=== PATIENT | male | born 1960 | race Caucasian/White ===

== ENCOUNTER → 2018-03-17 13:07 | Outpatient (CLI) | payer BC, SELFPAY ==
--- NOTE | 2018-03-17 13:11 | CA_ITS ---
PROCEDURE: 2-D M-mode and color Doppler study INDICATIONS FOR THE TEST: Chest pain COPD Heart Murmur Tobacco Smoking Palpitations Fatigue Syncope Edema Hypertension+Diabetes Mellitus Rheumatic Fever SOB [place]+Obesity Hyperlipidemia+ Family History HD+ Additional History PATIENT INFORMATION HEIGHT: 65 WEIGHT:198 GENDER: Male B/P:177/93 2-D/M-MODE INTERPRETATION: 2-D MEASUREMENTS OBSERVED VALUES IN CMS Right Ventricular Dimension (RVDd) 2.3 Interventricular Septum (Thickness)(IVsd) 1.2 Left Ventricular Internal Dimensions(LVIDd) 2.8 Left Ventricular Posterior Wall (Thickness)(LVPWd) 1.3 Aortic Root 3.8 Aortic Cusp Separation 2.1 Left Atrial Dimensions (LAD) 3.8 2D 1. Left atrium is mildly enlarged, left ventricle is normal size, mild concentric left ventricular hypertrophy, visually estimated ejection fraction of 60-65% with no obvious regional wall motion abnormality, septum has sigmoid configuration. 2. The right atrium and right ventricle are normal size and contractility. 3. The aortic valve is minimally thickened and fibrosed. 4. The mitral and tricuspid valve are grossly normal. 5. The pulmonic valve is poorly visualized. 6. No significant pericardial effusion noted. DOPPLER INTERROGATION: Doppler interrogation of the aortic, mitral and tricuspid valvular presence of mild mitral and tricuspid regurgitation, tricuspid and enteric velocity insufficient for calculation of the right ventricular systolic pressure, grade 1 diastolic dysfunction seen without tissue Doppler evidence of raised left atrial pressure. CONCLUSION: 1. Mildly left atrium, normal left ventricular size, mild concentric left ventricular hypertrophy, visually estimated ejection fraction of 60-65% with no obvious regional wall motion abnormality, septum has sigmoid configuration, grade 1 diastolic dysfunction seen without tissue Doppler evidence of raised left atrial pressure. 2. Mild mitral and tricuspid regurgitation 3. No significant pericardial effusion noted.
== END ==
PROVIDERS: Family Provider Nurse Practitioner; PCP Nurse Practitioner; Visit Provider Internal Medicine
DX: I10 Essential (primary) hypertension (principal); E78.2 Mixed hyperlipidemia; I51.9 Heart disease, unspecified
CPT/HCPCS: 93306

== ENCOUNTER → 2018-04-16 16:19 | Outpatient (CLI) | payer BC, SELFPAY ==
[2018-04-16 17:49] LABS: Anion Gap 13.9 mEq/L (5-15); Blood Urea Nitrogen 15 mg/dL (7-18); Calcium 9.2 mg/dL (8.5-10.1); Carbon Dioxide 29 mmol/L (21.0-32.0); Chloride 101 mmol/L (98-107); Creatinine,Serum 1.03 mg/dL (0.70-1.30); Estimated Glomerular Filt Rate 75 ml/min (>60); GFR (African American) 90 ML/MIN (>60); Glucose 100 mg/dL (74-106); Potassium 3.9 mmoL/L (3.5-5.1); Sodium 140 mmol/L (136-145)
== END ==
PROVIDERS: Physician Assistant; PCP Obstetrics & Gynecology; Visit Provider Internal Medicine
DX: I50.30 Unspecified diastolic (congestive) heart failure (principal); R53.83 Other fatigue; R06.83 Snoring; E78.2 Mixed hyperlipidemia; I10 Essential (primary) hypertension
CPT/HCPCS: 36415; 80048

== ENCOUNTER → 2018-04-23 15:47 | Outpatient (CLI) | payer BC, SELFPAY | PROVIDERS: PCP Nurse Practitioner; Visit Provider Physician Assistant | DX: G47.9 Sleep disorder, unspecified (principal); R06.83 Snoring; R40.0 Somnolence; R53.83 Other fatigue | CPT/HCPCS: 95806 ==

== ENCOUNTER → 2020-07-20 12:01 | Outpatient (CLI) | payer BC, SELFPAY | PROVIDERS: PCP Family Medicine; Visit Provider Family Medicine | DX: Z20.828 Contact with and (suspected) exposure to other viral communicable diseases (principal); U07.1 COVID-19 | CPT/HCPCS: U0003 ==

== ENCOUNTER → 2021-07-05 15:19 | Outpatient (CLI) | payer BC, SELFPAY ==
--- NOTE | 2021-07-05 15:26 | XR_ITS ---
PROCEDURE: XR FOOT LT MIN 3V CLINICAL INDICATION: LT FOOT PAIN, HX OF GOUT COMPARISON: No exams were available for comparison FINDINGS: No fracture or dislocation. No lytic or blastic change. There is normal mineralization. There is mild sclerosis and narrowing of the MP joint great toe. The plantar arch is normal. There is a tiny calcaneal enthesophyte at the insertion of the plantar tendon. Changes evident. Other findings:None. IMPRESSION: Mild osteoarthritic change MP joint great toe Dictated by: Dr. Maximino Adorno MD 07/05/2021 16:11 Dr. Maximino Adorno MD in [place] 07/05/2021 16:11
== END ==
PROVIDERS: PCP Nurse Practitioner Family; Visit Provider Nurse Practitioner Family
DX: M79.672 Pain in left foot (principal); Z87.39 Personal history of other diseases of the musculoskeletal system and connective tissue
CPT/HCPCS: 73630

== ENCOUNTER → 2021-09-10 08:52 | Outpatient (CLI) | payer BC, SELFPAY | PROVIDERS: Visit Provider Nurse Practitioner | DX: Z20.822 Contact with and (suspected) exposure to COVID-19 (principal) | CPT/HCPCS: C9803; U0003; U0005 ==

== ENCOUNTER 2021-09-12 09:12 | Day surgery (SDC) | payer BC, SELFPAY ==
--- NOTE | 2021-09-02 13:45 | SUR.PREOP ---
09/02/21 @ 1345 - Rosalee called in to [facility] spoke with Juan Pharmicist for Dr Russell
[2021-09-06 09:49] VITALS: BMI 30.7
[2021-09-12 10:03] VITALS: BP 148/86; PULSE 83; RESP 16; TEMP 36.8; O2SAT 99
--- NOTE | 2021-09-12 10:50 | HMH.SCOPE ---
- Procedure: Date: 09/12/21 Patient Date of :: 1960 Procedure Performed:: Colonoscopy & polypectomy with snare Indications:: Screening colonoscopy Performing Provider:: Nohemi Carrera MD Referring Provider:: Jostin Schmidt MD Sedation:: Propofol Procedure:: After placing the patient in the left lateral decubitus position, the colonoscopy was gently inserted into the rectum and under direct visualization advanced to the cecum which was identified by transillumination in the right lower quadrant, identification of the ileocecal valve, appendiceal orifice, and cecal strap. Color, texture, mucosa, and anatomy of the colon were carefully examined with the scope. Findings:: Anal canal: normal Rectum: normal Sigmoid colon: Scattered diverticuli : Adenomatous Sigmoid polyp, .7cm, snared and removed Descending colon: normal without polyps or inflammatory changes Splenic flexure: normal Transverse colon: normal without polyps or inflammatory changes Hepatic flexure: normal Ascending colon: normal without polyps or inflammatory changes Cecum: normal Terminal ileum: not visualized Impression: Adenomatous sigmoid polyp Scattered sigmoid diverticulosis Specimens:: Sigmoid polyp Recommendations:: Repeat colonoscopy in about 3 years or so, sooner if clinically indicated Complications:: None Estimated blood obtained (mL): 0
[2021-09-12 10:52] VITALS: O2SAT 100
--- NOTE | 2021-09-12 10:55 | HMH.ANESCL ---
[facility] Anesthesia Checklist - Patient Identification Patient Identification: Arm Band - Structural Data Admitted From: Home Planned Operative Procedure/s: colonoscopy Consent for Planned Operative Procedure(s) Verified: Yes Verified Documents: Surgical Consent, History and Physical - NPO Status Verified Time NPO: 00:00 - Additional verifications Anesthesia Reactions: No - Airway Assessment C-Spine Mobility Assessed: Yes (mp2) TMJ Mobility Assessed: Yes Dentition: Good Dentition - Neurological Assessment Level of Consciousness: Awake, Alert - Anesthesia Plan Anesthesia Risk discussed: Yes Anesthesia Plan: Verified ASA Class: II Anesthesia Type: MAC [facility] History I have reviewed the patient's past medical history: Yes Medical History: Reports:: Gastroesophageal Reflux Disease(GERD), Hyperlipidemia, Hypertension Denies:: Cancer, Diabetes Mellitus Type 1, Diabetes Mellitus Type 2, Internal Pacemaker, MRSA, Seizures *Have you ever received a pneumonia vaccine?: Yes *Have you received a flu vaccine this season?: Yes Anesthesia experience/problems:: nac Other Surgeries: Yes: No Previous Surgery. No: Pacemaker Amputation: No Fractures: No - *Social History Last grade of school completed: 11th or 12th Smoking Status: Current some day smoker Tobacco Type: cigarettes # Packs/Day (cigarettes): 1 Alcohol Intake: current Alcohol Intake Frequency:: a few times a month Substance Use Type: denies use *Occupational Status:: employed, previously employed Housing: house Household Members: spouse *Travel in the last 8 weeks: None Family Hx:: No significant family history
[2021-09-12 11:12] VITALS: BP 106/78; PULSE 90; RESP 18; TEMP 36.6; O2SAT 91
[2021-09-12 11:22] VITALS: BP 112/80; PULSE 93; RESP 18; O2SAT 97
[2021-09-12 11:35] VITALS: BP 131/86; PULSE 80; RESP 18; O2SAT 96
[2021-09-12 11:45] VITALS: BP 127/87; PULSE 74; RESP 18; O2SAT 98
== END 2021-09-12 11:46 | disposition home or self-care (01) ==
LOC: OUTP 09:17
PROVIDERS: PCP Nurse Practitioner Family; Visit Provider Internal Medicine Gastroenterology
PROC: 0DJD8ZZ Inspection of Lower Intestinal Tract, Via Natural or Artificial Opening Endoscopic (ICD-10-PCS; CPT 45378; principal; 2021-09-12 10:30)
DX: Z12.11 Encounter for screening for malignant neoplasm of colon (principal); K63.5 Polyp of colon; K57.32 Diverticulitis of large intestine without perforation or abscess without bleeding; E78.5 Hyperlipidemia, unspecified; I10 Essential (primary) hypertension; Z79.899 Other long term (current) drug therapy
CPT/HCPCS: 45385

== ENCOUNTER 2025-04-06 08:32 | Emergency (ER) | payer BC, SELFPAY ==
[2025-04-06 08:33] VITALS: BP 167/91; PULSE 60; RESP 18; TEMP 36.7; O2SAT 100; BMI 28.3
--- NOTE | 2025-04-06 08:39 | ECG_ITS ---
APPROVED REPORT Exam: Resting ECG HR:58 bpm ECG Measurements Heart Rate 58 AXES [place] 158 P 68 QRSd 91 QRS 26 QT 399 T 54 QTc 396 Conclusion SINUS BRADYCARDIA INCOMPLETE RIGHT BUNDLE BRANCH BLOCK [90+ ms QRS DURATION, TERMINAL R IN V1/V2, 40+ ms S IN I/aVL/V4/V5/V6] MINIMAL ST DEPRESSION [0.025+ mV ST DEPRESSION] BORDERLINE ECG UNCONFIRMED REPORT Electronically signed by : FAVIO WALTER, 04/07/2025 00:37:22
--- NOTE | 2025-04-06 08:42 | PC.NURSE ---
DR MCMAHON AT BEDSIDE
--- NOTE | 2025-04-06 08:46 | XR_ITS ---
FINAL REPORT CLINICAL HISTORY: dyspnea FINDINGS: A portable view of the chest was obtained. Cardiac and mediastinal silhouettes are within normal limits. There is pulmonary vascular congestion. Left basilar opacity could be atelectasis or early pneumonia. There is no pleural effusion or pneumothorax. IMPRESSION: Left basilar atelectasis versus early pneumonia. Reviewed, Interpreted and Dictated by Azeb Romo MD Transcribed by Jennifer Quintero Authenticated and [facility]
--- NOTE | 2025-04-06 08:46 | INFXCTL.NOTE ---
FSBS 134 at this time.
--- NOTE | 2025-04-06 08:49 | HMH.EDGENADL ---
Discharge Plan Disposition Patient Disposition: Home, Self-Care Prescriptions Prescriptions: No Action pravastatin 40 mg tablet 40 mg PO QHS omeprazole 20 mg capsule,delayed release(DR/EC) 20 mg PO DAILY nebivolol [Bystolic] 10 mg tablet 10 mg PO DAILY indomethacin 50 mg capsule 50 mg PO BID PRN (Reason: pain) losartan-hydrochlorothiazide 1 EACH tablet 1 tab PO DAILY Referrals Follow up/Referrals: Jarrod Curran MD [Staff Physician, Cardiology] - See instructions Leigh Granda APRN [Primary Care Provider, Medical] - See instructions Activity Restrictions/Add. Instructions Additional Instructions/Restrictions: As discussed no definitive explanation for your symptoms today however I would like for you to follow-up with cardiology for an echo and Holter/event monitor as discussed. Please return to the emergency department with any significant worsening of your symptoms or other concerns. Additionally please take it easy from an exertional standpoint and minimize your caffeine intake as discussed Clinical Impressions Clinical Impression: Near syncope Print Language Print Language: Albanian Discharge ED Provider: Lacey Sabillon General Adult HPI General Chief complaint: Dizziness Stated complaint: dizziness/light headed Time Seen by Provider: 04/06/25 08:39 History of Present Illness HPI narrative: 64-year-old presenting today with near syncope. States he was in his normal state of health no new or different symptoms preceding his episode today no new or different medications etc. he states he was at work working on a piece of heavy machinery and began suddenly feeling lightheaded. Does not recall the entire events not sure if he lost consciousness and stated that a coworker had to hold him up. Since that time he states his body feels like it weighs a ton. No focal weakness. No chest pain no shortness of breath no fevers or chills or any other symptoms. Denies any cardiovascular history does have a history of gout he states. Related Data Home Medications ?Medication ?Instructions ?Recorded ?Confirmed nebivolol 10 mg tablet (Bystolic) 10 mg PO DAILY High blood pressure 03/15/18 09/12/21 omeprazole 20 mg capsule,delayed 20 mg PO DAILY GERD 03/15/18 09/12/21 release pravastatin 40 mg tablet 40 mg PO QHS Cholesterol 03/15/18 09/12/21 indomethacin 50 mg capsule 50 mg PO BID PRN pain 05/03/18 09/12/21 losartan 50 mg-hydrochlorothiazide 1 tab PO DAILY High blood pressure 09/06/21 09/12/21 12.5 mg tablet Allergies Allergy/AdvReac Type Severity Reaction Status Date / Time No Known Allergies Allergy Verified 09/06/21 09:48 [facility] Disclaimer: The information contained in this section may have been updated after the patient was seen, as this information can be updated by other users. Medical History (Updated 04/06/25 @ 08:52 by Lacey Sabillon MD) Ex-smoker for more than 1 year Snoring Hyperlipidemia Hypertension Social History Smoking Status: Current every day smoker tobacco type: cigarettes packs per day: 1 alcohol intake: current alcohol intake frequency: a few times a month substance use type: denies use current occupational status: employed and previously employed Travel in the last 8 weeks?: None household members: spouse housing: house current occupation: construction caffeine: Yes Other Medical History Have you received the Flu Vaccine for this season: Yes Have you received the Pneumonia Vaccine: Yes ROS Obtained: Yes All systems reviewed & no additional complaints except as documented Physical Exam General General appearance: alert Respiratory Respiratory exam: Present normal lung sounds bilaterally; Absent respiratory distress Cardiovascular Cardiovascular exam: Present regular rate Neurological Exam Neurological exam: Present alert, oriented X3, CN II-XII intact, normal gait and other (Nonfocal neurologic exam); Absent motor sensory deficit Medical Decision Making Medical Records Screening: Per USPSTF and CDC recommendations, given the prevalence of disease in our region, it is our hospital?s policy to screen for HIV and viral Hepatitis for all patients aged 18 and over and those with ongoing risk factors. Abhijit Inquiry Pt receiving controlled substance: No Vital Signs: 04/06/25 08:33 04/06/25 09:30 04/06/25 10:01 Temperature 98.0 F Temperature Source Oral Pulse Rate 56 L 59 L Pulse Rate [Apical] 60 Respiratory Rate 18 18 16 Blood Pressure 160/95 H 167/89 H Blood Pressure [Right Arm] 167/91 H Blood Pressure Mean [Right Arm] 116 Blood Pressure Source [Right Arm] Automatic Cuff Blood Pressure Position [Right Arm] Sitting 02 Sat by Pulse Oximetry 100 99 99 Oxygen Delivery Method Room Air 04/06/25 10:30 Temperature Temperature Source Pulse Rate 54 L Pulse Rate [Apical] Respiratory Rate 15 Blood Pressure 157/83 H Blood Pressure [Right Arm] Blood Pressure Mean [Right Arm] Blood Pressure Source [Right Arm] Blood Pressure Position [Right Arm] 02 Sat by Pulse Oximetry 96 Oxygen Delivery Method Lab Data Lab results reviewed: Yes I reviewed the patient's lab results. Lab Results 04/06/25 08:45: WBC 13.3 H, RBC 4.21 L, Hgb 13.4 L, Hct 42.1, MCV 100.0 H, MCH 31.8 H, MCHC 31.8, RDW 12.6, Plt Count 144, MPV 10.9 H, Neut % (Auto) 35.4 L, Lymph % (Auto) 55.5 H, [place] % (Auto) 7.9, Eos % (Auto) 0.4, Baso % (Auto) 0.3, Neut # (Auto) 4.7, Lymph # (Auto) 7.4 H, [place] # (Auto) 1.1 H, Eos # (Auto) 0.1, Baso # (Auto) 0.0, Total Counted 100, Neutrophils % (Manual) 33 L, Lymphocytes % (Manual) 58 H, Atypical Lymphs % 1.0, Monocytes % (Manual) 6, Eosinophils % (Manual) 1, Basophils % (Manual) 1.0, Platelet Estimate Slight decrease, Sodium 137, Potassium 4.5, Chloride 101, Carbon Dioxide 27, Anion Gap 13.5, BUN 10, Creatinine 0.70, Estimated Creat Clear 82, Estimated GFR 114, Est GFR ( Amer) 138, Glucose 146 H, Calcium 9.2, Phosphorus 3.1, Magnesium 1.8, Total Bilirubin 0.5, AST 35, ALT 25, Alkaline Phosphatase 85, Total Creatine Kinase 107, Troponin I < 0.01, Total Protein 8.9 H, Albumin 4.3, Globulin 4.6 H, Albumin/Globulin Ratio 0.9 L, TSH 0.99, HCV Ab JANE w/Rflx PCR Qn Negative, HIV Ag/Ab Combo Qual Negative 04/06/25 08:45 04/06/25 08:45 Orders (Tests/Meds): ED MEDICATIONS Discontinued Medications Generic Name Dose Route Start Last Admin Trade Name Freq PRN Reason Stop Dose Admin Lactated Ringer's 1,000 mls @ 999 mls/hr 04/06/25 09:00 04/06/25 09:00 Lactated Ringer's 1000 Ml Bag IV 04/06/25 10:00 999 mls/hr .Q1H1M MIRACLE Administration ORDERS Category Date Time Status CXR --portable [XR chest portable] Stat Exams 04/06/25 08:46 Completed BNP [NT Pro Brain Natriuretic Pep.] Stat Lab 04/06/25 08:45 Results CBC w/Auto Diff [Complete Blood Count Auto Diff] Stat Lab 04/06/25 08:45 Completed CK [Creatine Kinase] Stat Lab 04/06/25 08:45 Results CMP [Comprehensive Metabolic Panel] Stat Lab 04/06/25 08:45 Results HIV Combo Stat Lab 04/06/25 08:45 Completed Hepatitis C Ab Qual. W/ RFX Stat Lab 04/06/25 08:45 Completed Magnesium Stat Lab 04/06/25 08:45 Results Phosphorous Stat Lab 04/06/25 08:45 Results TSH [Thyroid Stimulating Hormone] Stat Lab 04/06/25 08:45 Results Trop I [Troponin I] Stat Lab 04/06/25 08:45 Results Troponin I Q3H Lab 04/06/25 12:00 Ordered Troponin I Q3H Lab 04/06/25 15:00 Ordered ECG Data Tracing #1: I reviewed this ECG and interpreted as documented below: Ventricular rate 58 sinus bradycardia no significant block no acute ischemic changes noted there is an incomplete right bundle branch block normal axis Medical Decision Narrative: Well-appearing 64-year-old male with a nonfocal neurologic exam GCS of 15, EKG that is unremarkable presents today with near syncope. Will get metabolic workup and administer IV fluids. It is possible this patient had an arrhythmia cannot rule that out at this moment. Will have him follow-up with cardiology for more of a structural evaluation and Holter/event monitor. Reassessment patient feeling much better serial vital signs are normal labs unremarkable chest x-ray performed I personally interpreted shows no acute cardiopulmonary emergency. I have advised that he follow-up closely with cardiology as discussed and to take it easy from an exertional standpoint until that time. His at the bedside states that has been drinking energy drinks have asked that he hold off on that and minimize his caffeine intake until cleared by cardiology. Patient was stable and discharged in improved condition. Critical Care Critical Care Time Critical Care Time: No
--- NOTE | 2025-04-06 08:50 | PC.NURSE ---
XR AT BEDSIDE
[2025-04-06 08:55] LABS: Hematocrit 42.1 % (42.0-52.0); Hemoglobin 13.4 g/dL (14.1-18.0); Immature Granulocytes % 0.5 %; Mean Corpuscular HGB Conc 31.8 g/dL (31.8-35.4); Mean Corpuscular Hemoglobin 31.8 pg (27.0-31.2); Mean Corpuscular Volume 100.0 fl (80-94); Nucleated Red Blood Cells % 0 %; Platelet Count 144 K/mm3 (142-424); Red Blood Count 4.21 M/mm3 (4.60-6.20); Red Cell Distribution Width-SD 46.7 fL; White Blood Count 13.3 K/mm3 (4.8-10.8)
[2025-04-06] MEDS: LACTATED RINGERS 1000ML 1,000 ML 999 ML IV (09:00)
[2025-04-06 09:06] LABS: Albumin Level 4.3 g/dl (3.5-5.0); Chloride 101 mmol/L (98-107)
[2025-04-06 09:07] LABS: Potassium 4.5 mmoL/L (3.5-5.1); Sodium 137 mmol/L (136-145)
[2025-04-06 09:09] LABS: Alanine Aminotransferase 25 U/L (12-78); Albumin/Globulin Ratio 0.9 (1.1-1.8); Alkaline Phosphatase 85 U/L (38-126); Anion Gap 13.5 mEq/L (5-15); Aspartate Amino Transferase 35 U/L (17-59); Bilirubin,Total 0.5 mg/dl (0.2-1.3); Blood Urea Nitrogen 10 mg/dl (9-20); Carbon Dioxide 27 mmol/L (22.0-30.0); Creatinine Clearance Estimated 82 mL/min (50-200); Creatinine,Serum 0.70 mg/dl (0.66-1.25); Estimated Glomerular Filt Rate 114 ml/min (>60); GFR (African American) 138 ML/MIN (>60); Globulin 4.6 g/dL (1.3-3.2); Phosphorous 3.1 mg/dl (2.5-4.5); Total Protein,Serum 8.9 g/dl (6.3-8.2)
[2025-04-06 09:10] LABS: Calcium 9.2 mg/dl (8.4-10.2); Creatine Kinase 107 U/L (55-170); Glucose 146 mg/dl (74-100); Magnesium 1.8 mg/dl (1.6-2.3)
[2025-04-06 09:25] LABS: Troponin I < 0.01 ng/ml (0.00-0.034)
[2025-04-06 09:30] VITALS: BP 160/95; PULSE 56; RESP 18; O2SAT 99
[2025-04-06 09:40] LABS: Thyroid Stimulating Hormone 0.99 uIU/mL (0.465-4.68)
[2025-04-06 10:01] VITALS: BP 167/89; PULSE 59; RESP 16; O2SAT 99
[2025-04-06 10:03] LABS: Hepatitis C Ab Qual. W/ RFX NEGATIVE (Negative)
--- NOTE | 2025-04-06 10:04 | PC.NURSE ---
CARDIOLOGY NEW PT APPT 04/11/2025 @ 1045
[2025-04-06 10:06] LABS: Total Cells Counted 100
[2025-04-06 10:30] VITALS: BP 157/83; PULSE 54; RESP 15; O2SAT 96
[2025-04-06 10:59] VITALS: BP 157/83; PULSE 58; RESP 16; TEMP 36.8; O2SAT 97
[2025-04-06 12:35] LABS: NT Pro Brain Natriuretic Pep. 156 pg/mL (0-125)
== END 2025-04-06 11:07 | disposition home or self-care (01) ==
PROVIDERS: Emergency Provider Student in an Organized Health Care Education/Training Program; PCP Nurse Practitioner Family
DX: R55 Syncope and collapse (principal); R00.1 Bradycardia, unspecified; R42 Dizziness and giddiness; F17.210 Nicotine dependence, cigarettes, uncomplicated; I10 Essential (primary) hypertension; E78.5 Hyperlipidemia, unspecified
CPT/HCPCS: 71045; 80053; 82550; 83735; 83880; 84100; 84443; 84484; 85007; 85025; 85027; 86803; 87389; 93005; 96360; 99284; J7120

== ENCOUNTER 2025-04-11 11:41 | Outpatient (CLI) | payer BC, SELFPAY | END 2025-04-11 23:59 | disposition home or self-care (01) | LOC: RT 11:41 | PROVIDERS: PCP Nurse Practitioner Family; Visit Provider Physician Assistant | DX: I49.1 Atrial premature depolarization (principal); I49.3 Ventricular premature depolarization; R55 Syncope and collapse | CPT/HCPCS: 93270 ==

== ENCOUNTER 2025-04-21 07:56 | Outpatient (CLI) | payer BC, SELFPAY ==
--- NOTE | 2025-04-21 08:00 | CA_ITS ---
APPROVED REPORT EXAM: Comprehensive 2D, Doppler, and color-flow Echocardiogram Cash Surrender Calculator: Verna Ferreira RT(R) Ht: 5 ft 5 in Wt: 170lbs BSA: 1.85 BP: 142/86 mmHg Indications: near syncope, Hypertension, abn EKG 2D Dimensions LA Volume 26.10 mL LA Volume Index 14.11 mL/m2 (M/F) 16-34 EF AP4 57.00 % GL Strain -20.7 % M-Mode Dimensions RVDd 2.44 cm (0.9-2.6) LA Diam 3.96 cm (1.9-4.0) LVDd 3.78 cm (3.5-5.7) LVDs 2.88 cm (3.5-5.7) IVSd 1.14 cm (0.6-1.1) PWd 0.97 cm (0.6-1.1) EF (Teich) 48.20% FS 23.80% EDV (Teich) 61.20 mL ESV (Teich) 31.70 mL LV Diastology E Decel Time 200 (160-240 msec) E/A Ratio 0.8 Mitral Valve MV E Max Vijay. 89.0 (40-130 cm/s) MV A Velocity 106.0 (40-130 cm/s) E/A Ratio 0.84 MV PHT 59.0 ms Left Ventricle The left ventricle is normal size. Left ventricular systolic function is normal. The left ventricular ejection fraction is within the normal range. There is increased left ventricular wall thickness. There is normal LV segmental wall motion. The left ventricular diastolic function is normal. LVEF is 55%. Right Ventricle The right ventricle is normal size. The right ventricular systolic function is normal. Atria The left atrium size is normal. The right atrium size is normal. There is no color Doppler evidence of interatrial shunt. Aortic Valve The aortic valve opens well. There is no hemodynamically significant aortic valvular stenosis. No aortic regurgitation is present. Mitral Valve The mitral valve is normal in structure. No evidence of mitral valve stenosis. Trace mitral regurgitation is present. Tricuspid Valve The tricuspid valve leaflets are thin and pliable. Trace tricuspid regurgitation. There is insufficient TR jet to estimate RVSP. Pulmonic Valve The pulmonary valve is grossly normal in structure. Trace pulmonic valve regurgitation is present. Great Vessels The aortic root is normal in size. IVC is normal in size and collapses >50% with inspiration. Pericardium There is no pericardial effusion. Other Information Study Quality: Fair Conclusion Normal biventricular systolic function. No significant valvular stenosis or regurgitation. Electronically signed by : Tiffanie Toscano MD 04/22/2025 21:35:31
== END 2025-04-21 23:59 | disposition home or self-care (01) ==
LOC: RT 07:58
PROVIDERS: PCP Nurse Practitioner Family; Visit Provider Physician Assistant
DX: E78.5 Hyperlipidemia, unspecified (principal); I10 Essential (primary) hypertension; R55 Syncope and collapse
CPT/HCPCS: 93306

== ENCOUNTER 2025-04-26 06:54 | Outpatient (CLI) | payer BC, SELFPAY ==
--- NOTE | 2025-04-26 | CA_ITS ---
APPROVED REPORT Exam: Exercise Treadmill Technologist: Elizabeth Mcadams Stress Nurse: Wendy Madrid Ht: 5 ft 5 in Wt: 171 lbs BSA: 1.85 m2 HR: 95 bpm BP: 148/96 mmHg Stress Test Details Test: Exercise stress testing was performed using a Isaias protocol. HR Resting HR: 95 bpm Max Heart Rate (APMHR): 157.045345 bpm Max HR Achieved: 135 bpm Target HR (85% APMHR): 133.000064 bpm % of APMHR: 85.99 Recovery HR: 104 bpm BP Resting BP: 148.0/96.0 mmHg Max BP: 178.0/85.0 mmHg Recovery BP: 163.0/92.0 mmHg ECG Stress ECG Conclusion Lungs CTA prior to start of test. Test stopped just prior to 3 minutes due to leg pain and dyspnea. Symptoms: None Arrhythmias/Ectopy: PAC ST-T Changes: Maximum 1.5 mm flattening/downsloping ST depression - II, V4-V6 at peak exercise. Return to baseline abnormalities 7 minutes in recovery. Conclusion: Abnormal ECG stress concerning for ischemia. DTS = - 3.5 Electronically signed by : Tiffanie Toscano MD 04/26/2025 18:42:11
--- NOTE | 2025-04-26 07:00 | NM_ITS ---
APPROVED REPORT Exam: Nuclear Stress Test Indication: syncope..high bp..high cholesterol Patient Location: Outpatient Stress Tech: Elizabeth Mcadams [place] Tech:Neelam SotoKHUSHBU RT(R)(N) Ht: 5 ft 5 in Wt: 170 lbs HR: 98 bpm BP: 148/96 mmHg BSA: 1.85 m2 TID: 0.99 BMI: 28.2 History: syncope..high bp..high cholesterol Procedure: Patient exercised on Isaias protocol 2:58 minutes and sec, resting heart rate 98 bpm, resting blood pressure 148/96 mmHg, with exercise maximum heart rate achived was 135 bpm which is 85 % of the maximum predicted heart rate and blood pressure was 175/85 mmHg. Test was stopped due to fatigue. Patient denied any complaint of chest pain. Patient has poor exercise capacity, achieved 4.7 METs of workload on treadmill, the blood pressure response to exercise was normal. Cardiac Stress and Resting SPECT Images: Cardiac Stress and Resting SPECT images were obtained using technetium 99m Myoview 30.4 mCi stress and 10.69 mCi at rest. Resting and stress imaging in supine and prone positions demonstrate a medium-sized, moderate, partially reversible perfusion defect in the basal to mid inferior LV velazquez. Gated imaging demonstrates normal global and regional LV systolic function. LVEF is calculated at 55%. Conclusion: Medium-sized, moderate, partially reversible perfusion defect in the basal to mid inferior LV velazquez. Findings are suggestive of partial reversible ischemia. Gated imaging demonstrates normal global and regional LV systolic function. LVEF is calculated at 55%. Electronically signed by : Tiffanie Toscano MD 04/26/2025 12:58:18
[2025-04-26] MEDS: ISOTOPE MYOVIEW (PER STUDY) 1 DOSE IV (09:26)
[2025-04-26] MEDS: SODIUM CHLORIDE 0.9% 10ML SYR (RAD ONLY) 10 ML IV ×2 (09:26)
[2025-04-26 11:14] VITALS: BP 148/96; BP 178/85; PULSE 95; RESP 16
== END 2025-04-26 23:59 | disposition home or self-care (01) ==
LOC: RAD 06:55
PROVIDERS: PCP Nurse Practitioner Family; Visit Provider Physician Assistant
DX: E78.5 Hyperlipidemia, unspecified (principal); I10 Essential (primary) hypertension; R55 Syncope and collapse; R94.39 Abnormal result of other cardiovascular function study; R94.31 Abnormal electrocardiogram [ECG] [EKG]
CPT/HCPCS: 78452; 93017; 93018; A9502

== ENCOUNTER 2025-05-25 07:19 | Outpatient (CLI) | payer BC, SELFPAY ==
[2025-05-25 07:41] VITALS: BMI 28.3
[2025-05-25 07:52] VITALS: BP 132/81; PULSE 59; RESP 16; TEMP 36.2; O2SAT 100
--- NOTE | 2025-05-25 08:30 | CT_ITS ---
APPROVED REPORT Stripper Soft Plastic: CLINICAL INDICATION Chest Pain TECHNIQUE Image Acquisition: A 128 slice MDCT scanner (C[employer] View) was used for data acquisition. A noncontrast coronary calcium scan was performed. A CT attenuation threshold of 130 Hounsfield units (HU) was used for the detection of calcium in contiguous voxels of 1 sq mm in area to be counted as individual lesions. Bolus tracking in the ascending aorta with a threshold of 180 HU was performed. Immediately afterwards, ECG synchronized cardiac CT was then performed from the cardiac base to apex using retrospective gating with ECG tube current modulation. A total of 85 mL of Isovue 370 mg/mL contrast medium was administered at 5 mL/sec followed by a saline flush using a biphasic injection protocol. A tube voltage of 120 KVp was used. The patient received the following medications prior to the cardiac CT. 0.4 mg of sublingual nitroglycerin The average heart rate at the time of acquisition was 62 bpm and regular. Image Reconstruction Transaxial images were reconstructed at 0.67 mm slide thickness. Data was reviewed interactively on an advanced workstation capable of 2 and 3-dimensional displays in all conventional reconstruction formats, including multiplanar reformations, maximum intensity projections, curved multiplanar reformations, and volume rendered reconstructions. When applicable, selected routine images describing the relevant coronary anatomy and pathology were saved and sent to PACS. Complications None Technical Quality Overall image quality was good. Coronary artery opacification was adequate. Total DLP (Dose-Length Product) is 1137.6 mGy-cm. The reported value represents the total of one or more individual components during the CT acquisition of this date and at this time, and as such, the same value may appear in more than one CT report depending on the interpreting/reporting physicians. COMPARISON None FINDINGS CT Coronary Calcium Scoring LMA (Left Main Artery) = 19 LAD (Left Anterior Descending) = 597 LCX (Left Coronary Circumflex) = 325 RCA (Right Coronary Artery) = 1774 Total Calcium Score = 2715 using the AJ-130 method. The observed calcium score of 2715 is at 99th percentile for subjects of the same age, sex, and race/ethnicity. The interpretation of the calcium heart score is based on the following continuum*: 0 = no calcified plaque detected (risk of coronary artery disease is very low ??? less than 5%) 1-10 = calcium detected in extremely minimal levels (risk of coronary diseases is still low ??? less than 10%) 11-100 = mild levels of plaque detected with certainty (mild or minimal narrowing of heart arteries is likely) 101-400 = definite,at least moderate levels of plaque detected (relatively high risk of a heart attack within 3-5 years) >401-999 = extensive levels of plaque detected (high risk of heart attack, high levels of vascular disease are present, high likelihood of at least one significant coronary narrowing) *The calcium heart score quantifies the burden of coronary calcification/plaque in the coronary arteries. The calcium heart score is not able to evaluate the presence or burden of non-calcified (i.e. soft) plaque. There is also calcification in the aortic valve, mitral annulus, and the ascending and descending thoracic aorta. Coronary CT Angiography The coronary arterial system is right dominant. Quantitative Stenosis Grading: Left Main (LM): The left main originates normally from the left sinus of Valsalva. The LM bifurcates into the left anterior descending artery and left circumflex artery. There is mixed calcified/noncalcified plaque in the mid LM segment, with < 25% luminal stenosis. Left Anterior Descending (LAD) and Diagonal Branches: The LAD gives off 3 diagonal branch(es). There is mixed calcified/noncalcified plaque in the proximal and mid LAD segments with up to 70-90% luminal stenosis. There is no evidence of LAD-myocardial bridge. Left Circumflex (LCX) and Obtuse Marginals (OM): The LCX gives off 1 Obtuse Marginal (OM) branch(es). There is mixed calcified/noncalcified plaque in the proximal LCx, with 25-49% luminal stenosis. Right Coronary Artery (RCA): The RCA originates normally from the right sinus of Valsalva. The RCA gives off a posterior descending artery (PDA) and posterolateral (PL) branches. There is mixed calcified/noncalcified plaque along the RCA, with up to 70-90% luminal stenosis. Non-Coronary Cardiac Findings: Analysis of the left ventricular (LV) structure and function was performed after 3-D reconstruction of the LV from axial images, with user-corrected automatic contouring for assessment of LV volumes and user-defined reconstruction from oblique planes for measurement of 3-D cardiac structure and function. -The left ventricle systolic function is normal. -There is no left atrial appendage filling defect. Two right pulmonary veins and two left pulmonary veins drain normally into the left atrium. -No pericardial thickening or calcification. -Central and branch pulmonary arteries in the [id number] are unremarkable. -Thoracic aorta within the visualized thoracic aortic-branches in the [id number] is unremarkable. Extracardiac Structures No significant extra-cardiac findings. Note, however, that this study is focused on the cardiac findings. IMPRESSION -Extensive coronary calcification with an Agatston score = 2715 using the AJ-130 method. -The observed calcium score of 2715 is at 99th percentile for subjects of the same age, sex, and race/ethnicity. -Multivessel, atherosclerotic coronary disease, with likely evidence of significant flow-limiting atherosclerosis of the LAD and RCA segments. -CAD-RADS 4A. Management recommendations per ACC/AHA guidelines*, as clinically appropriate. -Calcification in the aortic valve, mitral annulus, and the ascending and descending thoracic aorta. *Recommendations: CAD RADS 0: Reassurance. Consider non-atherosclerotic causes of chest pain. CAD RADS 1: Consider non-atherosclerotic causes of chest pain. Consider preventive therapy and risk factor modification. CAD RADS 2: Consider non-atherosclerotic causes of chest pain. Consider preventive therapy and risk factor modification, particularly for patients with nonobstructive plaque in multiple segments. CAD RADS 3: Consider further functional testing. Consider symptom-guided anti-ischemic and preventive pharmacotherapy as well as risk factor modification per published guideline statements. CAD RADS 4A: Consider further functional testing or invasive coronary angiography with revascularization per published guideline statements. Consider symptom-guided anti-ischemic and preventive pharmacotherapy as well as risk factor modification per published guideline statements. CAD RADS 4B: Invasive coronary angiography recommended with revascularization per published guideline statements. Consider symptom-guided anti-ischemic and preventive pharmacotherapy as well as risk factor modification per published guideline statements. CAD RADS 5: Consider invasive angiography and/or viability assessment with revascularization per published guideline statements. Consider symptom-guided anti-ischemic and preventive pharmacotherapy as well as risk factor modification per published guideline statements. CRITICAL RESULT None COMMUNICATION Per this written report The coronary and cardiac findings of this CCTA were reviewed, reported, and signed by Festus Toscano MD (Recreation Activities Coordinator) Conclusion Electronically signed by : Tiffanie Toscano MD 05/27/2025 00:20:29
[2025-05-25 09:06] LABS: Chloride 101 mmol/L (98-107); Potassium 4.8 mmoL/L (3.5-5.1); Sodium 137 mmol/L (136-145)
[2025-05-25 09:09] LABS: Calcium 9.5 mg/dl (8.4-10.2); Glucose 110 mg/dl (74-100)
[2025-05-25 09:39] LABS: Blood Urea Nitrogen 7 mg/dl (9-20); Creatinine Clearance Estimated 82 mL/min (50-200); Creatinine,Serum 0.80 mg/dl (0.66-1.25); Estimated Glomerular Filt Rate 98 ml/min (>60); GFR (African American) 118 ML/MIN (>60)
[2025-05-25 09:40] LABS: Anion Gap 10.8 mEq/L (5-15); Carbon Dioxide 30 mmol/L (22.0-30.0)
[2025-05-25 09:50] VITALS: BP 149/87; PULSE 59; RESP 18; TEMP 36.3; O2SAT 100
[2025-05-25] MEDS: NITROGLYCERIN 0.4MG SL TABLET SL (09:51)
[2025-05-25 09:53] VITALS: BP 108/68; PULSE 65; RESP 16; TEMP 36.3; O2SAT 100
[2025-05-25] MEDS: SODIUM CHLORIDE 0.9% 10ML SYR (RAD ONLY) 10 ML IV (09:54)
[2025-05-25] MEDS: IOPAMIDOL-370 (76%);100ML BOTTLE 80 ML IV (09:54)
[2025-05-25] MEDS: 0.9 % SODIUM CHLORIDE 50 ML VIAL IV (09:54)
[2025-05-25 09:56] VITALS: BP 115/64; PULSE 63; RESP 16; TEMP 36.3; O2SAT 100
[2025-05-25 10:03] VITALS: BP 126/73; PULSE 61; RESP 16; TEMP 36.3; O2SAT 100
== END 2025-05-25 10:11 | disposition home or self-care (01) ==
PROVIDERS: PCP Nurse Practitioner Family; Visit Provider Physician Assistant
DX: I25.10 Atherosclerotic heart disease of native coronary artery without angina pectoris (principal); R55 Syncope and collapse; R94.39 Abnormal result of other cardiovascular function study; I10 Essential (primary) hypertension; I70.0 Atherosclerosis of aorta; I34.81 Nonrheumatic mitral (valve) annulus calcification; I35.8 Other nonrheumatic aortic valve disorders
CPT/HCPCS: 75574; 80048; Q9967

== ENCOUNTER 2025-06-30 07:48 | Day surgery (SDC) | payer BC, SELFPAY ==
[2025-06-30] VITALS (14 sets, daily range): BP systolic 134–172; BP diastolic 74–104; PULSE 64–80; RESP 16–20; O2SAT 91–100; BMI 28.8
--- NOTE | 2025-06-30 07:09 | IR_ITS ---
APPROVED REPORT Patient Location: Outpatient [facility]: KHUSHBU Hallman RT (R) PROCEDURES Left heart catheterization Left ventriculogram Selective coronary angiogram Drug-eluting stent deployment to the ostial proximal mid and distal dominant right coronary in a contiguous manner Intravascular ultrasound to the right coronary artery INDICATION High risk abnormal CCTA, Coronary artery disease, Angina pectoris, Complex angiography/stent requiring IVUS guidance to reduce mace, Informed consent was obtained prior to the procedure. COMPLICATIONS NONE Estimated Blood Loss: LESS THAN 10 ML TECHNIQUE One percent lidocaine used to anesthetize the right anterior aspect of the wrist. The right radial artery was accessed via the Seldinger technique. A 6 Moroccan sheath was placed in the right radial artery. 2.5 mg of Verapamil, 800 mcg of nitroglycerin, 1mg Lidocaine and 5000 U Heparin were given through the arterial sheath. The JL3 catheter was also used to perform left heart catheterization, left ventriculogram and selective coronary angiogram. At the end the diagnostic angiogram therapeutic Was administered giving a therapeutic ACT and the guide catheter was placed in the right coronary artery followed by Choice PT extra-support wire placed distally. A 4 mm x 38 mm Guillermo frontier stent was placed in the proximal right coronary artery with the assistance of a guide liner and deployed at 20 hank. An additional 4 mm x 38 mm Guillermo frontier stent was placed distal to the first stent yet still overlapping and deployed at 20 hank. An additional 3.5 x 22 mm [place] frontier stent was placed distal to second stent placed however there was no overlap. This was deployed at 20 hank. An additional 4 mm x 12 mm Guillermo frontier stent was placed connecting the 4x38 to the 3.5x22 mm stent. This was deployed at 20 hank. There was an ostial proximal lesion which could be wire bias however I was hesitant to remove the wire in the event this was a true stenosis. Because of this a 4 mm x 12 mm Guillermo frontier stent was placed proximal to the for stent yet still overlapping extending into the ostium and deployed at 24 hank. The balloon was advanced and deployed at 24 hank throughout the proximal mid and distal segment. Intravascular ultrasound probe was advanced demonstrated nice expansion of the stent in the proximal and midportion with distal eccentric city and a heavily calcified vessel with excellent intraluminal MLA. After achieving excellent angiograph results the apparatus was removed the sheath was removed and hemostasis was achieved using TR banding patient was transferred to the postoperative in stable condition ANGIOGRAPHIC RESULTS The left main artery Normal The left anterior descending artery Is approximately normal followed by concentric calcified 70% stenosis with an additional 50 and then 60% mid vessel stenosis. The distal LAD is widely patent The circumflex artery Nondominant yet still large with a proximal concentric 50 to 60% calcified stenosis The right coronary artery Large and dominant with proximal calcified 50% stenosis mid vessel 80% stenosis with distal calcified 70% stenoses. A large posterior descending artery has mid vessel 40 to 50% stenosis The KUO ventriculogram reveals Hyperdynamic at 70% The left ventricular end-diastolic pressure 10 mmHg IMPRESSION Coronary artery disease as described above Successful reconstruction of the ostial proximal mid and distal dominant right coronary artery severe disease reduced to 0% with 5 contiguous drug-eluting stents Persistent mid LAD disease as described above Persistent proximal circumflex artery as described above Hyperdynamic ventricle Normal LVEDP PLAN 1. Effient and aspirin 2. LDL less than 55 to be achieved with high intensity statin 3. Avoidance of tobacco products 4. Risk factor modification 5. Cardiac rehabilitation 6. Patient will be brought back to the [facility] in 2 to 4 weeks and undergo stenting of the mid LAD and possible consideration of IVUS of the circumflex artery with possible revascularization of the circumflex artery Electronically signed by : Jarrod Curran MD 06/30/2025 11:09:52
[2025-06-30 08:11] LABS: Hematocrit 40.5 % (42.0-52.0); Hemoglobin 13.2 g/dL (14.1-18.0); Immature Granulocytes % 0.2 %; Mean Corpuscular HGB Conc 32.6 g/dL (31.8-35.4); Mean Corpuscular Hemoglobin 32.1 pg (27.0-31.2); Mean Corpuscular Volume 98.5 fl (80-94); Nucleated Red Blood Cells % 0 %; Platelet Count 158 K/mm3 (142-424); Red Blood Count 4.11 M/mm3 (4.60-6.20); Red Cell Distribution Width-SD 43.1 fL; White Blood Count 12.9 K/mm3 (4.8-10.8)
[2025-06-30 08:29] LABS: Anion Gap 8.5 mEq/L (5-15); Blood Urea Nitrogen 8 mg/dl (9-20); Calcium 9.4 mg/dl (8.4-10.2); Carbon Dioxide 29 mmol/L (22.0-30.0); Chloride 102 mmol/L (98-107); Creatinine Clearance Estimated 84 mL/min (50-200); Creatinine,Serum 0.80 mg/dl (0.66-1.25); Estimated Glomerular Filt Rate 98 ml/min (>60); GFR (African American) 118 ML/MIN (>60); Glucose 96 mg/dl (74-100); Potassium 4.5 mmoL/L (3.5-5.1); Sodium 135 mmol/L (136-145)
[2025-06-30 08:38] LABS: RBC Morphology Normal; Total Cells Counted 100
[2025-06-30] MEDS: HEPARIN 1,000 UNITS/ML 10ML VIAL (CATH LAB) 5000 UNIT IV (09:23)
[2025-06-30] MEDS: LIDOCAINE 1% 10ML MDV 10 ML IJ (09:23)
[2025-06-30] MEDS: 0.9 % SODIUM CHLORIDE 500 ML 25 ML IV (09:23)
[2025-06-30] MEDS: NITROGLYCERIN 800MCG/8ML SYR (CATH LAB) 800 MCG IA (09:23)
[2025-06-30] MEDS: HEPARIN 1,000 UNITS/500ML NS (CATH LAB) 3000 UNIT IV (09:23)
[2025-06-30] MEDS: VERAPAMIL 2.5MG/ML 2ML VIAL 2.5 MG IV (09:23)
[2025-06-30] MEDS: FENTANYL 100MCG/2ML VIAL 50 MCG IV (09:58)
[2025-06-30] MEDS: MIDAZOLAM HCL 1MG/ML 5ML VIAL 1 MG IV (09:58)
[2025-06-30] MEDS: PRASUGREL 10MG TAB 60 MG PO (10:33)
[2025-06-30] MEDS: IOPAMIDOL-370 (76%);100ML BOTTLE 125 ML IV (12:40)
[2025-06-30 12:43] LABS: CATHL Activated Clotting Time 320 SEC (74-125)
== END 2025-06-30 14:14 | disposition home or self-care (01) ==
PROVIDERS: PCP Nurse Practitioner Family; Visit Provider Internal Medicine
PROC: 4A023N7 Measurement of Cardiac Sampling and Pressure, Left Heart, Percutaneous Approach (ICD-10-PCS; CPT 93452; principal; 2025-06-30 07:30)
DX: I25.119 Atherosclerotic heart disease of native coronary artery with unspecified angina pectoris (principal); Z79.82 Long term (current) use of aspirin; Z79.899 Other long term (current) drug therapy; Z87.891 Personal history of nicotine dependence; I10 Essential (primary) hypertension; E78.5 Hyperlipidemia, unspecified; R06.83 Snoring
CPT/HCPCS: 92928; 92978; 93458; 80048; 85007; 85025; 85347; 99152; 99153; C1725; C1769; C1874; C9600; J1200; J1644; J2003; J3010; J7040; Q9967

== ENCOUNTER 2025-07-05 07:37 | Outpatient (CLI) | payer BC, SELFPAY ==
[2025-07-05 08:31] LABS: Hematocrit 41.7 % (42.0-52.0); Hemoglobin 13.1 g/dL (14.1-18.0); Immature Granulocytes % 0.3 %; Mean Corpuscular HGB Conc 31.4 g/dL (31.8-35.4); Mean Corpuscular Hemoglobin 31.5 pg (27.0-31.2); Mean Corpuscular Volume 100.2 fl (80-94); Nucleated Red Blood Cells % 0 %; Platelet Count 163 K/mm3 (142-424); Red Blood Count 4.16 M/mm3 (4.60-6.20); Red Cell Distribution Width-SD 45.0 fL; White Blood Count 11.2 K/mm3 (4.8-10.8)
[2025-07-05 09:02] LABS: Anion Gap 9.6 mEq/L (5-15); Blood Urea Nitrogen 11 mg/dl (9-20); Calcium 10.1 mg/dl (8.4-10.2); Carbon Dioxide 30 mmol/L (22.0-30.0); Chloride 103 mmol/L (98-107); Creatinine,Serum 0.90 mg/dl (0.66-1.25); Estimated Glomerular Filt Rate 85 ml/min (>60); GFR (African American) 103 ML/MIN (>60); Glucose 95 mg/dl (74-100); Potassium 4.6 mmoL/L (3.5-5.1); Sodium 138 mmol/L (136-145)
[2025-07-05 11:06] LABS: Total Cells Counted 100
[2025-07-05 11:07] LABS: RBC Morphology Normal
== END 2025-07-05 23:59 | disposition home or self-care (01) ==
LOC: LAB 07:38
PROVIDERS: PCP Nurse Practitioner Family; Visit Provider Internal Medicine
DX: I25.10 Atherosclerotic heart disease of native coronary artery without angina pectoris (principal)
CPT/HCPCS: 36415; 80048; 85007; 85025

== ENCOUNTER 2025-07-06 14:57 | Outpatient (CLI) | payer BC, SELFPAY | END 2025-07-06 23:59 | disposition home or self-care (01) | LOC: LAB 14:58 | PROVIDERS: PCP Nurse Practitioner Family; Visit Provider Internal Medicine Medical Oncology | DX: D72.829 Elevated white blood cell count, unspecified (principal); R77.9 Abnormality of plasma protein, unspecified | CPT/HCPCS: 36415 ==

== ENCOUNTER 2025-07-14 06:21 | Outpatient (CLI) | payer BC, SELFPAY ==
--- OUTSIDE RECORDS SUMMARY | 2025-07-14 06:24 | XMS_ITS ---
Author Organization Unknown ENCOUNTERS Encounter Performer Location Date Diagnosis Diagnosis Status Pre Admit [address] [place] [address] [id number] Emergency [place] [address] [address] [place] [address] [id number] [facility] Emergency [address] [place] [address] [id number] *Note: Encounters from your own facility or health system may be excluded. Allergies, Adverse Reactions, Alerts Allergen Type Severity Identification Date Medications Name Date Quantity Days Supplied [facility] Number
[2025-07-17 14:11] LABS: Albumin 3.7 g/dL (2.9-4.4); Alpha-1-Globulin 0.3 g/dL (0.0-0.4); Alpha-2-Globulin 0.7 g/dL (0.4-1.0); Gamma Globulin 2.7 g/dL (0.4-1.8)
== END 2025-07-14 23:59 | disposition home or self-care (01) ==
LOC: LAB 06:22
PROVIDERS: PCP Nurse Practitioner Family; Visit Provider Internal Medicine Medical Oncology
DX: D72.829 Elevated white blood cell count, unspecified (principal)
CPT/HCPCS: 36415; 82784; 83521; 84155; 84165

== ENCOUNTER 2025-08-02 08:49 | Outpatient (CLI) | payer BC, SELFPAY ==
[2025-08-02] VITALS (7 sets, daily range): BP systolic 110–154; BP diastolic 69–95; PULSE 61–101; RESP 16–22; TEMP 36.2–36.3; O2SAT 92–99; BMI 30.1
[2025-08-02 09:57] LABS: Hematocrit 39.7 % (42.0-52.0); Hemoglobin 12.7 g/dL (14.1-18.0); Immature Granulocytes % 0.3 %; Mean Corpuscular HGB Conc 32.0 g/dL (31.8-35.4); Mean Corpuscular Hemoglobin 31.4 pg (27.0-31.2); Mean Corpuscular Volume 98.3 fl (80-94); Nucleated Red Blood Cells % 0 %; Platelet Count 175 K/mm3 (142-424); Red Blood Count 4.04 M/mm3 (4.60-6.20); Red Cell Distribution Width-SD 44.5 fL; White Blood Count 14.9 K/mm3 (4.8-10.8)
[2025-08-02] MEDS: LACTATED RINGERS 1000ML 1,000 ML 25 ML IV (09:58)
--- NOTE | 2025-08-02 10:00 | CT_ITS ---
FINAL REPORT CLINICAL HISTORY: .BONE MARROW BIOPSY FINDINGS: CT GUIDED BONE MARROW ASPIRATION AND CORE BIOPSY. HISTORY: . Leukocytosis ATTENDING PHYSICIAN: Dr. Palencia PHYSICIAN STONE ROUGHER: Kevin Adan PA-C PROCEDURE: After informed consent was obtained and a timeout was performed, the patient was prepped and draped in usual sterile fashion over the left pelvis. Utilizing local anesthesia and sterile technique with a coaxial drill system, access to left iliac bone was obtained under direct CT guidance. Aspirate was obtained. In addition, a large core of marrow was obtained. The patient received moderate procedural sedation. The patient tolerated the procedure well and left the department in good condition. PROCEDURAL SEDATION: 3 mg of IV Versed and 100 mcg of Fentanyl were administered. Continuous vital sign monitoring was used. An RN was present during the sedation process. Overall sedation time was 30 minutes. IMPRESSION: Status post CT guided bone marrow aspiration and core biopsy as above. Reviewed, Interpreted and Dictated by Walter Palencia MD Transcribed by CIARA Morgan Authenticated and [facility]
[2025-08-02 10:09] LABS: INR 1.01 (0.9-1.1); Prothrombin Time 11.2 seconds (10.1-12.5)
[2025-08-02] MEDS: LIDOCAINE 1% 20ML MDV 20 ML (10:30)
[2025-08-02] MEDS: HEPARIN SODIUM 5,000 UNIT/ML VIAL 5000 UNIT (10:30)
[2025-08-02 10:39] LABS: Total Cells Counted 100
[2025-08-02 10:40] LABS: RBC Morphology Normal
== END 2025-08-02 23:59 | disposition home or self-care (01) ==
PROVIDERS: PCP Nurse Practitioner Family; Visit Provider Internal Medicine Medical Oncology
DX: C83.00 Small cell B-cell lymphoma, unspecified site (principal)
CPT/HCPCS: 38221; 77012; 85007; 85025; 85610; 99152; J1644; J2003; J2250; J3010; J7120

== ENCOUNTER 2025-08-14 07:41 | Day surgery (SDC) | payer BC, SELFPAY ==
[2025-08-14] VITALS (15 sets, daily range): BP systolic 103–145; BP diastolic 61–83; PULSE 59–80; RESP 18–20; O2SAT 95–100; BMI 29.1
--- NOTE | 2025-08-14 07:12 | IR_ITS ---
APPROVED REPORT Patient Location: Outpatient [facility] Hand: Edgar Hurtado, RT (R) PROCEDURES Drug-eluting stent deployment to the proximal and mid LAD INDICATION Coronary artery disease, Angina pectoris Informed consent was obtained prior to the procedure. COMPLICATIONS NONE Estimated Blood Loss: LESS THAN 10 ML TECHNIQUE One percent lidocaine was used to anesthetize the right groin. The right femoral artery was accessed via the Seldinger technique. A 6 Portuguese sheath was placed in the right femoral artery and therapeutic heparin was administered giving a therapeutic ACT. A 6 Portuguese JL 4 guide catheter was placed in left main artery followed by Choice PT extra-support wire. Primary stenting could not be performed therefore a 2 mm x 20 mm noncompliant balloon was advanced. This would not traverse the calcified proximal stenosis therefore a guide liner was inserted and with significant pushing and manipulation the balloon eventually made it in the proximal segment. This was deployed at 20 hank. After being deployed the balloon still would not advance into the mid segment. A fresh 2 mm x 20 mm compliant balloon was then advanced into the midportion also with significant pressure and difficulty to deliver the balloon. With the balloon in place this was delivered at 20 hank. The guide liner was advanced. A 2.5 x 38 mm [employer] frontier stent was deployed at 20 hank in the proximal to mid segment. The guide liner was advanced and an additional 2.25 x 38 mm Guillermo frontier stent was then deployed distal to the for stent yet still overlapping and deployed at 18 hank. The balloon was brought back and deployed at 24 hank to post dilate and match the 2 stents. A 2.5 x 20 mm noncompliant balloon was advanced and deployed at 24 hank in the proximal and midportion of the 2.5 mm stent. After achieving excellent angiographic results the apparatus was removed the groin was reprepped closure change sheath was removed and hemostasis was achieved using Perclose device patient was transferred to the postoperative care in stable condition IMPRESSION Successful percutaneous stenting of a heavily calcified severely diseased proximal to mid LAD severe disease reduced to 0% with 2 contiguous drug-eluting stents PLAN 1. Dual antiplatelet therapy 2. Medical management for the circumflex artery 3. LDL less than 55 to be achieved with high intensity statin 4. Avoidance of tobacco products 5. Risk factor modification 6. Cardiac rehabilitation Electronically signed by : Jarrod Curran MD 08/14/2025 10:52:09
[2025-08-14 08:16] LABS: Chloride 102 mmol/L (98-107); Sodium 139 mmol/L (136-145)
[2025-08-14 08:17] LABS: Hematocrit 40.6 % (42.0-52.0); Hemoglobin 13.3 g/dL (14.1-18.0); Immature Granulocytes % 0.3 %; Mean Corpuscular HGB Conc 32.8 g/dL (31.8-35.4); Mean Corpuscular Hemoglobin 32.0 pg (27.0-31.2); Mean Corpuscular Volume 97.6 fl (80-94); Nucleated Red Blood Cells % 0 %; Platelet Count 180 K/mm3 (142-424); Potassium 4.4 mmoL/L (3.5-5.1); Red Blood Count 4.16 M/mm3 (4.60-6.20); Red Cell Distribution Width-SD 44.4 fL; White Blood Count 12.7 K/mm3 (4.8-10.8)
[2025-08-14 08:19] LABS: Blood Urea Nitrogen 12 mg/dl (9-20); Creatinine Clearance Estimated 85 mL/min (50-200); Creatinine,Serum 0.90 mg/dl (0.66-1.25); Estimated Glomerular Filt Rate 85 ml/min (>60); GFR (African American) 103 ML/MIN (>60)
[2025-08-14 08:20] LABS: Anion Gap 11.4 mEq/L (5-15); Calcium 10.0 mg/dl (8.4-10.2); Carbon Dioxide 30 mmol/L (22.0-30.0); Glucose 106 mg/dl (74-100)
[2025-08-14] MEDS: HEPARIN 1,000 UNITS/ML 10ML VIAL (CATH LAB) 5000 UNIT IV (09:30)
[2025-08-14] MEDS: HEPARIN 1,000 UNITS/500ML NS (CATH LAB) 3000 UNIT IV (09:30)
[2025-08-14] MEDS: LIDOCAINE 1% 10ML MDV 10 ML IJ (09:31)
[2025-08-14] MEDS: 0.9 % SODIUM CHLORIDE 500 ML 25 ML IV (09:32)
[2025-08-14] MEDS: MIDAZOLAM HCL 1MG/ML 5ML VIAL 1 MG IV (09:32)
[2025-08-14 09:49] LABS: RBC Morphology Normal; Total Cells Counted 100
[2025-08-14] MEDS: FENTANYL 100MCG/2ML VIAL 50 MCG IV (10:01)
[2025-08-15] MEDS: IOPAMIDOL-370 (76%);100ML BOTTLE 120 ML IV (08:22)
[2025-08-15 08:26] LABS: CATHL Activated Clotting Time 375 SEC (74-125)
--- NOTE | 2025-08-25 14:04 | PC.NURSE ---
08/25/2025 pt stated he is not interested in rehab at this time. He is back to work.
== END 2025-08-14 14:15 | disposition home or self-care (01) ==
PROVIDERS: PCP Nurse Practitioner Family; Visit Provider Internal Medicine
PROC: 02703DZ Dilation of Coronary Artery, One Artery with Intraluminal Device, Percutaneous Approach (ICD-10-PCS; CPT 92928; principal; 2025-08-14 09:15)
PROC: 4A023N7 Measurement of Cardiac Sampling and Pressure, Left Heart, Percutaneous Approach (ICD-10-PCS; CPT 93452; 2025-08-14 09:15)
DX: I25.119 Atherosclerotic heart disease of native coronary artery with unspecified angina pectoris (principal); R93.1 Abnormal findings on diagnostic imaging of heart and coronary circulation; R94.39 Abnormal result of other cardiovascular function study; I10 Essential (primary) hypertension; E78.5 Hyperlipidemia, unspecified; F17.210 Nicotine dependence, cigarettes, uncomplicated; Z79.82 Long term (current) use of aspirin; Z79.02 Long term (current) use of antithrombotics/antiplatelets; Z79.899 Other long term (current) drug therapy; Z95.5 Presence of coronary angioplasty implant and graft; Z82.49 Family history of ischemic heart disease and other diseases of the circulatory system
CPT/HCPCS: 80048; 85007; 85025; 85027; 85347; 92928; 99152; 99153; C1725; C1760; C1769; C1874; C1887; C9600; J1200; J1644; J2003; J3010; J7040; Q9967

== ENCOUNTER 2025-08-21 08:59 | Outpatient (CLI) | payer BC, SELFPAY ==
[2025-08-21 09:16] LABS: Hematocrit 39.7 % (42.0-52.0); Hemoglobin 12.7 g/dL (14.1-18.0); Immature Granulocytes % 0.4 %; Mean Corpuscular HGB Conc 32.0 g/dL (31.8-35.4); Mean Corpuscular Hemoglobin 31.1 pg (27.0-31.2); Mean Corpuscular Volume 97.1 fl (80-94); Nucleated Red Blood Cells % 0 %; Platelet Count 177 K/mm3 (142-424); Red Blood Count 4.09 M/mm3 (4.60-6.20); Red Cell Distribution Width-SD 44.3 fL; White Blood Count 12.5 K/mm3 (4.8-10.8)
[2025-08-21 09:54] LABS: Anion Gap 11.5 mEq/L (5-15); Blood Urea Nitrogen 10 mg/dl (9-20); Calcium 9.7 mg/dl (8.4-10.2); Carbon Dioxide 29 mmol/L (22.0-30.0); Chloride 100 mmol/L (98-107); Creatinine,Serum 0.90 mg/dl (0.66-1.25); Estimated Glomerular Filt Rate 85 ml/min (>60); GFR (African American) 103 ML/MIN (>60); Glucose 104 mg/dl (74-100); Potassium 4.5 mmoL/L (3.5-5.1); Sodium 136 mmol/L (136-145)
[2025-08-21 10:41] LABS: RBC Morphology Normal; Total Cells Counted 100
== END 2025-08-21 23:59 | disposition home or self-care (01) ==
LOC: LAB 09:01
PROVIDERS: PCP Nurse Practitioner Family; Visit Provider Internal Medicine
DX: I25.10 Atherosclerotic heart disease of native coronary artery without angina pectoris (principal)
CPT/HCPCS: 36415; 80048; 85007; 85025

== ENCOUNTER 2025-08-23 14:09 | Outpatient (CLI) | payer BC, SELFPAY ==
--- OUTSIDE RECORDS SUMMARY | 2025-08-23 14:11 | XMS_ITS ---
Author Organization Unknown ENCOUNTERS Encounter Performer Location Date Diagnosis Diagnosis Status Pre Admit [facility] [address] [place] [address] [id number] Emergency [facility] [address] [place] [address] [id number] [facility] *Note: Encounters from your own facility or health system may be excluded. Allergies, Adverse Reactions, Alerts Allergen Type Severity Identification Date Medications Name Date Quantity Days Supplied GPI Number
[2025-08-23 15:07] LABS: Hematocrit 38.4 % (42.0-52.0); Hemoglobin 12.5 g/dL (14.1-18.0); Immature Granulocytes % 0.3 %; Mean Corpuscular HGB Conc 32.6 g/dL (31.8-35.4); Mean Corpuscular Hemoglobin 32.1 pg (27.0-31.2); Mean Corpuscular Volume 98.7 fl (80-94); Nucleated Red Blood Cells % 0 %; Platelet Count 187 K/mm3 (142-424); Red Blood Count 3.89 M/mm3 (4.60-6.20); Red Cell Distribution Width-SD 45.2 fL; White Blood Count 12.8 K/mm3 (4.8-10.8)
[2025-08-23 15:30] LABS: Alanine Aminotransferase 26 U/L (12-78); Albumin Level 4.3 g/dl (3.5-5.0); Albumin/Globulin Ratio 0.9 (1.1-1.8); Alkaline Phosphatase 95 U/L (38-126); Anion Gap 10.3 mEq/L (5-15); Aspartate Amino Transferase 31 U/L (17-59); Bilirubin,Total 0.6 mg/dl (0.2-1.3); Blood Urea Nitrogen 13 mg/dl (9-20); Calcium 9.7 mg/dl (8.4-10.2); Carbon Dioxide 27 mmol/L (22.0-30.0); Chloride 104 mmol/L (98-107); Creatinine,Serum 1.00 mg/dl (0.66-1.25); Estimated Glomerular Filt Rate 75 ml/min (>60); GFR (African American) 91 ML/MIN (>60); Globulin 4.7 g/dL (1.3-3.2); Glucose 102 mg/dl (74-100); Potassium 4.3 mmoL/L (3.5-5.1); Sodium 137 mmol/L (136-145); Total Protein,Serum 9.0 g/dl (6.3-8.2); Uric Acid 7.1 mg/dl (3.5-8.5)
[2025-08-23 18:02] LABS: Total Cells Counted 100
[2025-08-23 18:05] LABS: RBC Morphology Normal
[2025-08-26 07:30] LABS: ONC Beta-2 Microglobulin 1.8 mg/L (0.6-2.4)
[2025-08-28 14:14] LABS: Albumin 3.7 g/dL (2.9-4.4); Alpha-1-Globulin 0.3 g/dL (0.0-0.4); Alpha-2-Globulin 0.8 g/dL (0.4-1.0); Gamma Globulin 2.6 g/dL (0.4-1.8)
== END 2025-08-23 23:59 | disposition home or self-care (01) ==
LOC: LAB 14:09
PROVIDERS: PCP Nurse Practitioner Family; Visit Provider Internal Medicine Medical Oncology
DX: D72.829 Elevated white blood cell count, unspecified (principal); R89.7 Abnormal histological findings in specimens from other organs, systems and tissues
CPT/HCPCS: 36415; 80053; 82232; 82784; 83615; 84155; 84165; 84550; 85007; 85025; 85027